=== PATIENT | male | born 1955 | race Caucasian/White ===

== ENCOUNTER 2020-02-08 14:58 | Outpatient (CLI) | payer OTHER, SELFPAY ==
--- NOTE | 2020-02-12 12:05 | WPDPFTINT ---
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 PULMONARY FUNCTION TESTS Results are reliable and reproducible. Spirometry: FEV1 109%, FVC 99%, FEV1% 78%, all normal. HUO36-65% is 97%, normal, with 28% increase after bronchodilator in matthew small airways only. Lung volumes: TLC 98%, RV is 74% and RV/TLC is 29, all normal. Normal airway resistance. Diffusion: DLCO 105%. Flow volume loop: Normal. IMPRESSION: Normal spirometry, lung volumes and diffusion. No change with bronchodilator. With chronic cough, asthma is a consideration, and a methacholine challenge could be performed to exclude this if clinically indicated. Joann España MD
== END 2020-02-08 14:59 | disposition home or self-care (01) ==
PROVIDERS: PCP Internal Medicine; Visit Provider Internal Medicine
DX: R05 Cough (principal)
CPT/HCPCS: 94060; 94726; 94729

== ENCOUNTER 2020-11-25 11:54 | Outpatient (CLI) | payer MEDICARE, SELFPAY ==
--- NOTE | ~2020-11-25 | XR_ITS ---
EXAMINATION: XR knee RT 3V DATE: 11/25/2020 12:16 INDICATION: Medial sided right knee pain TECHNIQUE: Anteroposterior, sunrise, and flexed lateral views of the affected knee were obtained COMPARISON: None. FINDINGS: Alignment is normal. No fracture. Mild joint space narrowing at the medial side of the patellofemora l compartment. Subarticular cystic change is seen along the lateral trochlea suggesting overlying hig h-grade chondromalacia. Small marginal osteophytes in the medial and patellofemoral compartments. No joint effusion. Soft tissues are unremarkable. IMPRESSION: 1. 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 Reviewed, dictated and finalized at location A. IMPRESSION: 1. 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
== END 2020-11-25 11:55 | disposition home or self-care (01) ==
LOC: ANHIMG 11:57
PROVIDERS: PCP Internal Medicine; Visit Provider Physician Assistant
DX: M25.561 Pain in right knee (principal); M17.11 Unilateral primary osteoarthritis, right knee
CPT/HCPCS: 73562

== ENCOUNTER 2021-11-07 07:51 | Outpatient (CLI) | payer MEDICARE, SELFPAY ==
[2021-11-07 08:51] LABS: Basophils Absolute Auto 0.1 K/mm3 (0.0-0.1); Basophils Percent Auto 0.8 % (0.2-1.2); Eosinophils Absolute Auto 0.1 K/mm3 (0-0.3); Eosinophils Percent Auto 2.1 % (0-4.4); Hematocrit 43.1 % (42.0-52.0); Hemoglobin 14.7 g/dL (14.0-18.0); Immature Granulocyte Absolute 0.03 K/mm3 (0.00-0.031); Immature Granulocyte Percent A 0.5 % (0-0.5); Lymphocytes Absolute Auto 2.65 K/mm3 (0.9-3.2); Lymphocytes Percent Auto 43.8 % (18.3-44.2); Mean Corpuscular HGB Conc 34.1 g/dl (32-36); Mean Corpuscular Hemoglobin 31.3 pg (26-34); Mean Corpuscular Volume 91.7 fl (80-100); Mean Platelet Volume 9.6 fl (7.4-10.4); Monocytes Absolute Auto 0.9 K/mm3 (0.1-0.6); Monocytes Percent Auto 15.2 % (2.6-8.5); Neutrophils Absolute Auto 2.3 K/mm3 (1.3-6.7); Neutrophils Percent Auto 37.6 % (45.5-73.1); Platelet Count Result 245 k/mm3 (150-375); Red Cell Distribution Width 12.6 % (11.5-14.5); White Blood Count 6.1 K/mm3 (4.5-10.0)
[2021-11-07 09:30] LABS: Alanine Aminotransferase 25 U/L (6-50); Albumin Level 4.3 g/dL (3.5-5.1); Alkaline Phosphatase 58 U/L (38-126); Anion Gap 8 mmol/L (8-16); Aspartate Amino Transferase 29 U/L (17-59); Bilirubin,Total 0.6 mg/dL (0.2-1.3); Blood Urea Nitrogen 10 mg/dL (9-20); Carbon Dioxide 25 mmol/L (22-30); Chloride 107 mmol/L (98-107); Cholesterol 178 mg/dL (0-200); Estimated Glomerular Filt Rate > 60; Glucose 113 mg/dL (65-110); HDL Direct 51 mg/dL; Potassium 3.9 mmol/L (3.4-5.0); Sodium 140 mmol/L (137-145); Triglycerides 175 mg/dL (<150)
[2021-11-07 09:41] LABS: LDL Cholesterol Direct 83 mg/dL
[2021-11-07 10:22] LABS: Prostate Specific Antigen 1.7 ng/mL (< OR = 4.0)
[2021-11-07 10:57] LABS: Folic Acid 18.6 ng/mL (2.76->20)
== END 2021-11-07 07:52 | disposition home or self-care (01) ==
LOC: ANHLAB 07:55
PROVIDERS: PCP Internal Medicine; Visit Provider Internal Medicine
DX: R53.83 Other fatigue (principal); R73.9 Hyperglycemia, unspecified; Z12.5 Encounter for screening for malignant neoplasm of prostate; E78.5 Hyperlipidemia, unspecified
CPT/HCPCS: 36415; 80053; 80061; 82607; 82746; 84153; 84443; 85025; G0103

== ENCOUNTER 2022-11-26 07:30 | Outpatient (CLI) | payer MEDICARE, SELFPAY ==
[2022-11-26 09:10] LABS: Basophils Absolute Auto 0.1 K/mm3 (0.0-0.1); Basophils Percent Auto 0.8 % (0.2-1.2); Eosinophils Absolute Auto 0.2 K/mm3 (0-0.3); Hematocrit 45.4 % (42.0-52.0); Hemoglobin 15.2 g/dL (14.0-18.0); Immature Granulocyte Absolute 0.02 K/mm3 (0.00-0.031); Immature Granulocyte Percent A 0.3 % (0-0.5); Lymphocytes Absolute Auto 2.97 K/mm3 (0.9-3.2); Lymphocytes Percent Auto 46.5 % (18.3-44.2); Mean Corpuscular HGB Conc 33.5 g/dl (32-36); Mean Corpuscular Hemoglobin 31.3 pg (26-34); Mean Corpuscular Volume 93.4 fl (80-100); Mean Platelet Volume 10.2 fl (7.4-10.4); Monocytes Absolute Auto 0.8 K/mm3 (0.1-0.6); Neutrophils Absolute Auto 2.3 K/mm3 (1.3-6.7); Neutrophils Percent Auto 36.4 % (45.5-73.1); Platelet Count Result 247 k/mm3 (150-375); Red Blood Count 4.86 M/mm3 (4.6-6.20); Red Cell Distribution Width 12.4 % (11.5-14.5); White Blood Count 6.4 K/mm3 (4.5-10.0)
[2022-11-26 09:25] LABS: Alanine Aminotransferase 28 U/L (6-50); Albumin Level 4.4 g/dL (3.5-5.1); Alkaline Phosphatase 60 U/L (38-126); Anion Gap 7 mmol/L (8-16); Aspartate Amino Transferase 34 U/L (17-59); Bilirubin,Total 0.8 mg/dL (0.2-1.3); Blood Urea Nitrogen 12 mg/dL (9-20); Calcium 8.8 mg/dL (8.4-10.2); Carbon Dioxide 26 mmol/L (22-30); Chloride 105 mmol/L (98-107); Cholesterol 184 mg/dL (0-200); Estimated Glomerular Filt Rate > 60; Glucose 132 mg/dL (65-110); HDL Direct 46 mg/dL; Magnesium 2.1 mg/dL (1.6-2.3); Potassium 3.9 mmol/L (3.4-5.0); Sodium 138 mmol/L (137-145); Triglycerides 161 mg/dL (<150)
[2022-11-26 09:38] LABS: LDL Cholesterol Direct 106 mg/dL
[2022-11-26 09:57] LABS: Prostate Specific Antigen 1.9 ng/mL (< OR = 4.0)
[2022-11-26 10:05] LABS: Hemoglobin A1C 6.1 % (<5.7)
[2022-11-26 10:32] LABS: Folic Acid 13.3 ng/mL (2.76->20)
== END 2022-11-26 07:31 | disposition home or self-care (01) ==
PROVIDERS: PCP Internal Medicine; Visit Provider Internal Medicine
DX: R53.83 Other fatigue (principal); R73.9 Hyperglycemia, unspecified; E78.5 Hyperlipidemia, unspecified; I10 Essential (primary) hypertension; Z12.5 Encounter for screening for malignant neoplasm of prostate
CPT/HCPCS: 36415; 80053; 80061; 82607; 82746; 83036; 83735; 84153; 84443; 85025; G0103

== ENCOUNTER 2023-12-04 11:43 | Outpatient (CLI) | payer MEDICARE, SELFPAY ==
[2023-12-04 12:32] LABS: Alanine Aminotransferase 25 U/L (6-50); Albumin Level 4.8 g/dL (3.5-5.1); Alkaline Phosphatase 63 U/L (38-126); Anion Gap 11 mmol/L (4-12); Aspartate Amino Transferase 26 U/L (17-59); Bilirubin,Total 0.9 mg/dL (0.2-1.3); Blood Urea Nitrogen 14 mg/dL (9-20); Calcium 9.5 mg/dL (8.4-10.2); Carbon Dioxide 23 mmol/L (22-30); Chloride 106 mmol/L (98-107); Cholesterol 207 mg/dL (0-200); Estimated Glomerular Filt Rate > 60; Glucose 125 mg/dL (65-110); HDL Direct 60 mg/dL; Potassium 4.1 mmol/L (3.4-5.0); Sodium 140 mmol/L (137-145); Triglycerides 139 mg/dL (<150)
[2023-12-04 12:42] LABS: Hemoglobin A1C 6.2 % (<5.7)
[2023-12-04 12:44] LABS: LDL Cholesterol Direct 125 mg/dL
[2023-12-04 13:02] LABS: Prostate Specific Antigen 2.6 ng/mL (< OR = 4.0)
== END 2023-12-04 11:44 | disposition home or self-care (01) ==
LOC: ANHLAB 11:46
PROVIDERS: PCP Internal Medicine; Visit Provider Internal Medicine
DX: E78.5 Hyperlipidemia, unspecified (principal); I10 Essential (primary) hypertension; R73.9 Hyperglycemia, unspecified; Z12.5 Encounter for screening for malignant neoplasm of prostate
CPT/HCPCS: 36415; 80053; 80061; 83036; 84153; G0103

== ENCOUNTER 2024-12-07 11:44 | Outpatient (CLI) | payer MEDICARE, SELFPAY ==
[2024-12-07 12:03] LABS: Basophils Absolute Auto 0.1 K/mm3 (0.0-0.1); Basophils Percent Auto 0.7 % (0.2-1.2); Eosinophils Absolute Auto 0.1 K/mm3 (0-0.3); Eosinophils Percent Auto 1.9 % (0-4.4); Hematocrit 48.9 % (42.0-52.0); Hemoglobin 16.4 g/dL (14.0-18.0); Immature Granulocyte Absolute 0.05 K/mm3 (0.00-0.031); Immature Granulocyte Percent A 0.7 % (0-0.5); Lymphocytes Absolute Auto 2.64 K/mm3 (0.9-3.2); Lymphocytes Percent Auto 39.5 % (18.3-44.2); Mean Corpuscular HGB Conc 33.5 g/dl (32-36); Mean Corpuscular Hemoglobin 30.7 pg (26-34); Mean Corpuscular Volume 91.6 fl (80-100); Mean Platelet Volume 9.5 fl (7.4-10.4); Monocytes Absolute Auto 0.8 K/mm3 (0.1-0.6); Monocytes Percent Auto 11.7 % (2.6-8.5); Neutrophils Percent Auto 45.5 % (45.5-73.1); Platelet Count Result 242 k/mm3 (150-375); Red Blood Count 5.34 M/mm3 (4.6-6.20); Red Cell Distribution Width 12.7 % (11.5-14.5); White Blood Count 6.7 K/mm3 (4.5-10.0)
[2024-12-07 12:18] LABS: Alanine Aminotransferase 31 U/L (6-50); Albumin Level 4.7 g/dL (3.5-5.1); Alkaline Phosphatase 62 U/L (38-126); Anion Gap 11 mmol/L (4-12); Aspartate Amino Transferase 31 U/L (17-59); Bilirubin,Total 0.7 mg/dL (0.2-1.3); Blood Urea Nitrogen 10 mg/dL (9-20); Calcium 9.5 mg/dL (8.4-10.2); Carbon Dioxide 22 mmol/L (22-30); Chloride 105 mmol/L (98-107); Cholesterol 236 mg/dL (0-200); Estimated Glomerular Filt Rate > 60; Glucose 148 mg/dL (65-110); HDL Direct 57 mg/dL; Potassium 4.2 mmol/L (3.4-5.0); Sodium 138 mmol/L (137-145); Total Protein 8.2 g/dL (6.3-8.2); Triglycerides 203 mg/dL (<150)
[2024-12-07 12:30] LABS: LDL Cholesterol Direct 126 mg/dL
[2024-12-07 12:49] LABS: Prostate Specific Antigen 2.3 ng/mL (< OR = 4.0)
[2024-12-07 16:25] LABS: Hemoglobin A1C. 6.5 % (<5.7)
== END 2024-12-07 11:45 | disposition home or self-care (01) ==
PROVIDERS: PCP Internal Medicine; Visit Provider Internal Medicine
DX: J45.991 Cough variant asthma (principal); I10 Essential (primary) hypertension; R73.9 Hyperglycemia, unspecified; E78.5 Hyperlipidemia, unspecified; Z12.5 Encounter for screening for malignant neoplasm of prostate
CPT/HCPCS: 36415; 80053; 80061; 83036; 84153; 85025; G0103

== ENCOUNTER 2025-04-05 01:17 | Day surgery (SDC) | payer MEDICARE, SELFPAY ==
[2025-03-24 14:09] VITALS: BMI 33.7
[2025-04-05 07:04] VITALS: BP 143/93; PULSE 72; RESP 20; TEMP 36.3; O2SAT 97; BMI 34.1
[2025-04-05] MEDS: LACTATED RINGERS 1,000 ML 150 ML IV CONT (07:34)
--- NOTE | 2025-04-05 08:12 | P.HP_ITS ---
History of Present Illness History of Present Illness Consent: Risks, benefits, and alternatives have been discussed and questions answered. Patient agrees to proceed with procedure. Chief complaint: Personal history of colon polyps, unspecified Narrative: Bogdan Avalos is a 69 year old male with colon polyp in 2018 Review of Systems Review of Systems: All systems reviewed & are unremarkable except as noted in HPI and below PMFSH Past Medical History Medical History (Updated 04/05/25 @ 08:13 by Jefry Snider MD) Adenomatous colon polyp Pure hypercholesterolemia Personal history of colonic polyps Other fatigue Other abnormal glucose Encounter for screening for malignant neoplasm of prostate NAIDA-inhibitor cough Cellulitis of right leg Degenerative joint disease of knee Right knee pain Hyperglycemia Cough variant asthma Esophageal reflux Family History Family History (Updated 12/07/24 @ 09:05 by TARSHA Da Silva) Mother Family history of diabetes mellitus in first degree relative Sibling Family history of diabetes mellitus in first degree relative Father No problems noted. Other Diabetes mellitus Hypertension Social History Social History (Updated 12/07/24 @ 11:03 by TARSHA Da Silva) Smoking status: Never smoker Second hand tobacco smoke exposure: No Alcohol intake: current Drinks per week: 20 Alcohol use details: Beer Substance use: current Substance use type: marijuana Do You Feel Safe in your Home?: Yes Lack of Transportation: No Lack of Food: Never True Current Housing: I Have Housing Concerned About Future Housing: No Difficulty Paying Gas/Electric Bills: No Difficulty Paying for Meds: No Currently Unemployed: No Education: High School Diploma/GED Difficulty w/ Childcare or Family Care: No Living arrangements: with family Occupation/Education: retired 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 Gender identity (if verbalized by the patient): Male Spiritual care concerns: No Meds Home Medications and Allergies Home Medications ?Medication ?Instructions ?Recorded ?Confirmed ?Type fluticasone propionate 50 2 spray intranasal DAILY PRN nasal 06/16/21 04/05/25 Rx mcg/actuation nasal congestion #15.8 mL spray,suspension felodipine 10 mg tablet,extended 10 mg PO DAILY #90 ta bs 09/03/24 04/05/25 Rx release 24 hr atorvastatin 40 mg tablet (Lipitor) 40 mg PO DAILY #90 tabs 12/16/24 04/05/25 Rx fluticasone furoate 100 See Rx Instructions .Route 0 8/01/25 10/27/25 Rx mcg/actuation blister powder for .COMPLEX #90 ea inhalation (Arnuity Ellipta) irbesartan 150 mg tablet See Rx Instructions .Route 1 04/05/25 Rx .COMPLEX #100 tabs Allergies Allergy/AdvReac Type Severity Reaction Status Date / Time No Known Allergies Allergy Verified 04/05/25 07:10 Vital Signs Vital Signs - 24 hr 04/05/25 07:04 Temperature 97.4 F L Pulse Rate 72 Respiratory Rate 20 Blood Pressure 143/93 H Pulse Oximetry 97 Oxygen Delivery Room Air Exam Const: General: comfortable and no acute distress HENMT: Face/Nose/Sinus: Normal nares present Eyes: General: appearance normal, both eyes and all related structures Neck: Neck: no JVD Resp: Auscultation: clear to auscultation bilaterally Cardio: Rate: regular rate Rhythm: regular rhythm GI: Inspection: non-distended GI Palp: Yes Soft to palpation Skin: General skin exam: normal color Extrem: General: normal to inspection Psych: Mental Status: mental status grossly normal Assessment and Plan Assessment and plan (1) Adenomatous colon polyp: Code(s): D12.6 - Benign neoplasm of colon, unspecified Status: Acute Assessment and Plan: colonoscopy
--- NOTE | 2025-04-05 08:13 | P.PNAN_ITS ---
Anes - Initial Pre Proc Eval Procedure: Operation Date: 04/05/25 08:00 Proposed Procedures p Screening Colonoscopy - Jefry Snider MD Date/Time: 04/05/25 08:13 Surgeon: Jefry Snider MD Pre Op Diagnosis: Personal history of colon polyps, unspecified Patient Data Age: 69 Gender: M Height: 1.68 m Weight: 96 kg Last Vital Signs Temp 36.3 C L 04/05/25 07:04 Pulse 72 04/05/25 07:04 Resp 20 04/05/25 07:04 BP 143/93 H 04/05/25 07:04 Pulse Ox 97 04/05/25 07:04 O2 Del Method Room Air 04/05/25 07:04 Allergies Allergy/AdvReac Type Severity Reaction Status Date / Time No Known Allergies Allergy Verified 04/05/25 07:10 Home Medications ?Medication ?Instructions ?Recorded ?Confirmed ?Type fluticasone propionate 50 2 spray intranasal DAILY PRN nasal 06/16/21 04/05/25 Rx mcg/actuation nasal congestion #15.8 mL spray,suspension felodipine 10 mg tablet,extended 10 mg PO DAILY #90 ta bs 09/03/24 04/05/25 Rx release 24 hr atorvastatin 40 mg tablet (Lipitor) 40 mg PO DAILY #90 tabs 12/16/24 04/05/25 Rx fluticasone furoate 100 See Rx Instructions .Route 0 01/08/25 04/05/25 Rx mcg/actuation blister powder for .COMPLEX #90 ea inhalation (Arnuity Ellipta) irbesartan 150 mg tablet See Rx Instructions .Route 1 04/05/25 Rx .COMPLEX #100 tabs Patient hx anesthesia problems: none Family hx anesthesia problems: none Results Review: All pre-operative results and documents have been reviewed as part of the pre- operative evaluation. PENDING SALE TO [facility] Past Medical History Medical History Adenomatous colon polyp Pure hypercholesterolemia Personal history of colonic polyps Other fatigue Other abnormal glucose Encounter for screening for malignant neoplasm of prostate NAIDA-inhibitor cough Cellulitis of right leg Degenerative joint disease of knee Right knee pain Hyperglycemia Cough variant asthma Esophageal reflux Family History Family History Mother Family history of diabetes mellitus in first degree relative Sibling Family history of diabetes mellitus in first degree relative Father No problems noted. Other Diabetes mellitus Hypertension Social History Social History Smoking status: Never smoker Second hand tobacco smoke exposure: No Alcohol intake: current Drinks per week: 20 Alcohol use details: Beer Substance use: current Substance use type: marijuana Do You Feel Safe in your Home?: Yes Lack of Transportation: No Lack of Food: Never True Current Housing: I Have Housing Concerned About Future Housing: No Difficulty Paying Gas/Electric Bills: No Difficulty Paying for Meds: No Currently Unemployed: No Education: High School Diploma/GED Difficulty w/ Childcare or Family Care: No Living arrangements: with family Occupation/Education: retired 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 Informed Consent: The patient's anesthetic plan and its attendant risks and benefits were discussed with the patient/family/POA. Questions were solicited and answers provided to the satisfaction of the patient/family/POA.
--- NOTE | 2025-04-05 08:37 | S_PTH ---
PATIENT: Bogdan Avalos LOC: [facility] Bright#:[id number] AGE/SX: 69/M ROOM: RE04/05/[address]: Jefry Snider MD : 1955 BED: DIS: 04/05/2025 SPEC #: [id number] RECD: 04/05/25 09:16 STATUS: DORIAN RENilton #: [id number] ALANA: 04/05/25 08:[address]: Jefry Snider DEPT: [facility] Surgical RECD BY: Destiny Nunez ENTERED: 04/05/25 09:17 SP TYPE: Surgical OTHR DR: Mono Montoya DO Tissues: A - Colon Polypectomy B - Colon Polypectomy C - Colon Polypectomy D - Colon Polypectomy Procedures: Hematoxylin and Eosin Stain Gross and Microscopic Level 4
[2025-04-05 08:38] VITALS: BP 138/83; PULSE 64; RESP 21; O2SAT 98
[2025-04-05 08:48] VITALS: BP 127/73; PULSE 55; RESP 15; O2SAT 97
[2025-04-05 08:58] VITALS: BP 143/80; PULSE 56; RESP 19; O2SAT 98
== END 2025-04-05 09:08 | disposition home or self-care (01) ==
PROVIDERS: PCP Internal Medicine; Referring Provider Internal Medicine; Visit Provider Internal Medicine Gastroenterology
PROC: 0DJD8ZZ Inspection of Lower Intestinal Tract, Via Natural or Artificial Opening Endoscopic (ICD-10-PCS; CPT 45378; principal; 2025-04-05 08:00)
DX: Z12.11 Encounter for screening for malignant neoplasm of colon (principal); D12.0 Benign neoplasm of cecum; D12.5 Benign neoplasm of sigmoid colon; D12.3 Benign neoplasm of transverse colon; D12.2 Benign neoplasm of ascending colon; K57.30 Diverticulosis of large intestine without perforation or abscess without bleeding; J45.909 Unspecified asthma, uncomplicated; K21.9 Gastro-esophageal reflux disease without esophagitis; E78.00 Pure hypercholesterolemia, unspecified; R73.9 Hyperglycemia, unspecified; R53.83 Other fatigue; M17.10 Unilateral primary osteoarthritis, unspecified knee; F12.90 Cannabis use, unspecified, uncomplicated; Z79.51 Long term (current) use of inhaled steroids
CPT/HCPCS: 45380; 45385; 88305; J2003; J2704; J7120